=== PATIENT | male | born 1955 | race Caucasian/White ===

== ENCOUNTER 2016-11-18 10:06 | Inpatient (IN) | payer SELFPAY ==
[~2016-11-18] VITALS: Ht 182.9 cm; Wt 70.0 kg
[2016-11-18 10:08] VITALS: BP 198/88; PULSE 97; RESP 16; TEMP 97.7; O2SAT 100
[2016-11-18] MEDS ORDERED: DIPHTH/TETANUS/ACEL PERTUSSIS (BOOSTER) 0.5 ML VIAL/PFS IM ONE (11:00)
--- NOTE | 2016-11-18 11:00 | PD ---
HPI Chief Complaint: Skin Problem Time Seen by Provider: 10:37 Travel History International Travel<30 days: No Contact w/Intl Traveler<30days: No Traveled to known affect area: No History of Present Illness HPI This is a 61 year-old gentleman with no past medical history, who presents here with complaints of right foot infection. The patient states that he's had a lesion on the bottom of his left foot that started as a callus one year ago. He states that intermittently it's healed and then unhealed. He states that recently over the last week or 2, he's noted that there is been increased redness, pain and drainage in between his great toe and second toe. He denies any fevers, chills. He denies any history of diabetes mellitus. He denies any history of vascular disease. He states that there is been a foul smell coming from the drainage which is part of what prompted him to come to the ED. He denies knowing when his last tetanus immunization was. PFSH Past Medical History Tetanus Vaccination: Unknown Social History Alcohol Use: No Tobacco Use: Yes Substance Use: No Allergies-Medications (Allergen,Severity, Reaction): Coded Allergies: No Known Allergies (Unverified , 11/18/16) Reported Meds & Prescriptions Reported Meds & Active Scripts Active No Active Prescriptions or Reported Medications Review of Systems Except as stated in HPI: all other systems reviewed are Neg General / Constitutional: No: Fever, Chills HENT: No: Lightheadedness Cardiovascular: No: Chest Pain or Discomfort, Palpitations Respiratory: No: Cough, Shortness of Breath Gastrointestinal: No: Nausea, Vomiting Skin: Positive Lesions (bottom of left foot underneath the first metatarsal. It is also a ulcer in between his first and second toe) Physical Exam Narrative GENERAL: Well-nourished, well-developed patient. SKIN: Warm and dry. HEAD: Normocephalic/atraumatic. EYES: No injection or drainage. NECK: Supple, trachea midline. CARDIOVASCULAR: Regular rate and rhythm without murmurs, gallops, or rubs. RESPIRATORY: Breath sounds equal bilaterally. No accessory muscle use. MUSCULOSKELETAL: On examination of the patient's right foot, there is a large callus under the foot at the first metatarsal area. There is a chronic pale lesion noted on the central portion of the callus. There is redness noted around the callus. In between his first and second toe, there is a large rocio -sized ulceration with serous sanguinous foul smelling drainage. Cap refill is less than 3 seconds. NEUROLOGICAL: Awake and alert. Cranial nerves II through XII intact. Motor grossly within normal limits. Five out of 5 muscle strength in all muscle groups. Normal speech. Data Data Last Documented VS Vital Signs Date Time Temp Pulse Resp B/P Pulse Ox O2 Delivery O2 Flow Rate FiO2 11/18/16 10:57 76 18 11/18/16 10:08 97.7 198/88 100 Orders Foot, Complete ([id number]) (11/18/16 10:50) Complete Blood Count With Diff (11/18/16 10:50) Comprehensive Metabolic Panel (11/18/16 10:50) Wound Culture And Gram Stain (11/18/16 10:50) Iv Access Insert/Monitor (11/18/16 10:50) Mjrm-Myf-Zpalud (Booster) Inj (Boostrix (11/18/16 11:00) Ampicillin-Sulbactam Inj (Unasyn Inj) (11/18/16 12:45) Insulin Human Regular Inj (Novolin R Inj (11/18/16 12:45) Admit Order (Ed Use Only) (11/18/16 13:03) Labs Laboratory Tests Test 11/18/16 11:00 White Blood Count 6.2 TH/MM3 Red Blood Count 3.55 MIL/MM3 Hemoglobin 10.4 GM/DL Hematocrit 29.2 % Mean Corpuscular Volume 82.2 FL Mean Corpuscular Hemoglobin 29.4 PG Mean Corpuscular Hemoglobin 35.8 % Concent Red Cell Distribution Width 14.3 % Platelet Count 172 TH/MM3 Mean Platelet Volume 8.6 FL Neutrophils (%) (Auto) 77.8 % Lymphocytes (%) (Auto) 13.9 % Monocytes (%) (Auto) 7.6 % Eosinophils (%) (Auto) 0.5 % Basophils (%) (Auto) 0.2 % Neutrophils # (Auto) 4.8 TH/MM3 Lymphocytes # (Auto) 0.9 TH/MM3 Monocytes # (Auto) 0.5 TH/MM3 Eosinophils # (Auto) 0.0 TH/MM3 Basophils # (Auto) 0.0 TH/MM3 CBC Comment DIFF FINAL Differential Comment Sodium Level 133 MEQ/L Potassium Level 4.4 MEQ/L Chloride Level 103 MEQ/L Carbon Dioxide Level 24.1 MEQ/L Anion Gap 6 MEQ/L Blood Urea Nitrogen 21 MG/DL Creatinine 1.12 MG/DL Estimat Glomerular Filtration 66 ML/MIN Rate Random Glucose 256 MG/DL Calcium Level 8.6 MG/DL Total Bilirubin 0.5 MG/DL Aspartate Amino Transf 8 U/L (AST/SGOT) Alanine Aminotransferase 17 U/L (ALT/SGPT) Alkaline Phosphatase 72 U/L Total Protein 7.9 GM/DL Albumin 2.9 GM/DL MDM Medical Decision Making Medical Screen Exam Complete: Yes Emergency Medical Condition: Yes Interpretation(s) Last Impressions Foot X-Ray 11/18/16 1050 Signed Impressions: Service Date/Time: November 11:36 - CONCLUSION: 1. No underlying bony abnormality. 2. Mild osteoarthritic change. Spencer Arroyo MD Differential Diagnosis Cellulitis versus osteomyelitis versus gangrene Narrative Course 61-year-old gentleman who reports no past medical history, presents today with complaints of left foot redness pain and drainage. The patient's noted to have had a callus one year ago that is progressively gotten worse with intermittent infections. The patient states that is not healing well and he's noticed a ulcer in between his first and second toe. He denies any fevers, chills. He denies any significant past medical history although his blood glucose was noted to be in the 200s. X-ray of the foot shows no evidence of osteomyelitis. He has obvious cellulitis. Given the fact that it appears he has new onset diabetes mellitus and cellulitis, I will admit him to the hospital. He will be started on Ampicillin and sulbactam. He has been given 5 units of regular insulin. There is a call out to the residents for admission. Diagnosis Primary Impression: Diabetic ulcer of right foot Qualified Code: E11.621 - Diabetic ulcer of right foot associated with type 2 diabetes mellitus Additional Impression: New onset type 2 diabetes mellitus Scripts No Active Prescriptions or Reported Meds Jaswinder Cabezas MD Nov 18, 2016 11:00
[2016-11-18 11:22] LABS: AUTOMATED NEUTROPHIL # 4.8 TH/MM3 (1.8-7.7); BASOPHIL % 0.2 % (0.0-2.0); EOSINOPHIL % 0.5 % (0.0-4.0); HEMATOCRIT 29.2 % (39.0-51.0); HEMO FLAGS DIFF FINAL; LYMPH % 13.9 % (9.0-44.0); LYMPHOCYTE # 0.9 TH/MM3 (1.0-4.8); MEAN CELL VOLUME 82.2 FL (80.0-100.0); MEAN CORPUSCULAR HEMOGLOBIN 29.4 PG (27.0-34.0); MEAN CORPUSCULAR HGB CONC 35.8 % (32.0-36.0); MONO % 7.6 % (0.0-8.0); NEUT % 77.8 % (16.0-70.0); PLATELET COUNT 172 TH/MM3 (150-450); RED BLOOD COUNT 3.55 MIL/MM3 (4.50-5.90); RED CELL DISTRIBUTION WIDTH 14.3 % (11.6-17.2); WHITE BLOOD COUNT 6.2 TH/MM3 (4.0-11.0)
[2016-11-18 11:48] LABS: ALT (GPT) 17 U/L (12-78); ANION GAP 6 MEQ/L (5-15); BICARBONATE 24.1 MEQ/L (21.0-32.0); BLOOD UREA NITROGEN 21 MG/DL (7-18); CHLORIDE 103 MEQ/L (98-107); GLOMERULAR FILTRATION RATE 66 ML/MIN (>89); POTASSIUM 4.4 MEQ/L (3.5-5.1); SODIUM (NA) 133 MEQ/L (136-145)
--- NOTE | 2016-11-18 11:48 | RADRPT ---
EXAM DATE/TIME: 11/18/2016 11:36 This report includes an Addendum and supersedes previous reports for this exam. [facility] COMPARISON: No previous studies available for comparison. INDICATIONS : Left foot pain and redness. MEDICAL HISTORY : None. SURGICAL HISTORY : None. ENCOUNTER: Initial ACUITY: 2 weeks PAIN SCORE: 7/10 LOCATION: Left foot, medial side of great toe FINDINGS: Three view examination of the left foot demonstrates no soft tissue swelling, dislocation, or fractur e. The tarsal bones appear intact. There is no destructive change or periosteal new bone formation . The interphalangeal and metatarsophalangeal joints are intact. The calcaneus is intact. There is m ild osteopenia. There are mild degenerative changes involving the metatarsal tarsal joints and intert arsal joints with sclerosis and mild spurring. CONCLUSION: 1. No underlying bony abnormality. 2. Mild osteoarthritic change. Spencer Arroyo MD on November 18, 2016 at 11:45 Board Certified Radiologist. This report was verified electronically. ADDENDUM: This study is labeled left but all the images are of the right foot. Spencer Arroyo MD on November 19, 2016 at 8:55 Board Certified Radiologist. This report was verified electronically.
[2016-11-18 11:51] LABS: ALKALINE PHOSPHATASE 72 U/L (45-117); AST (GOT) 8 U/L (15-37); TOTAL BILIRUBIN ADULT 0.5 MG/DL (0.2-1.0)
[2016-11-18] MEDS ORDERED: INSULIN HUMAN REGULAR 1,000 UNITS/10 ML VIAL IV PUSH ONE (12:45)
[2016-11-18] MEDS ORDERED: AMPICILLIN-SULBACTAM INJ 3 GM in SODIUM CHLORIDE 0.9% INJ 100 ML IV ONE (12:45)
[2016-11-18 13:00] VITALS: BP 152/77; PULSE 76; RESP 17; O2SAT 99
[2016-11-18 15:01] VITALS: BP 150/71; PULSE 76; RESP 17; O2SAT 99
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
[2016-11-18] MEDS ORDERED: SODIUM CHLORIDE 0.9% FLUSH 5 ML FLUSH FLUSH PRN (15:45)
[2016-11-18] MEDS ORDERED: NALOXONE HCL 0.4 MG/ML AMP IV PRN (15:45)
[2016-11-18] MEDS ORDERED: Vancomycin Consult Pharmacy 1 EA OTHER SCH (16:30)
[2016-11-18] MEDS ORDERED: GLUCAGON 1 MG/ML VIAL OTHER PRN (16:30)
[2016-11-18] MEDS ORDERED: PIPERACIL-TAZO 4.5 GM PREMIX 100 ML IV SCH (16:30)
[2016-11-18] MEDS ORDERED: DEXTROSE 50% IN WATER 50 ML VIAL(D50) IV PUSH PRN (16:30)
[2016-11-18 17:33] LABS: BLOOD, URINE NEG (NEG); COMMENT (UR) CULT NOT INDICATED; CULTURE IF INDICATED CULT NOT INDICATED; GLUCOSE,URINE 150 mg/dL (NEG); KETONE, URINE NEG (NEG); MUCUS URINE FEW /lpf (OCC); NITRITE,URINE NEG (NEG); URINE COLOR YELLOW (YELLW/STRAW)
[2016-11-18 17:37] LABS: AMPHETAMINE, URINE NEG (NEG); BARBITURATES, URINE NEG (NEG); COCAINE, URINE NEG (NEG)
[2016-11-18 18:00] VITALS: BP 154/66; PULSE 87; RESP 18; TEMP 97.8; O2SAT 98
[2016-11-18] MEDS ORDERED: LISINOPRIL 10 MG TAB PO SCH (18:00)
[2016-11-18] MEDS ORDERED: PIPERACIL-TAZO 3.375 GM PREMIX 50 ML IV SCH (18:00)
[2016-11-18 18:17] LABS: HEMOGLOBIN A1a 1.1 %; HEMOGLOBIN A1b 0.7 %; HEMOGLOBIN Ao 82.5 %; HEMOGLOBIN F 1.3 %; HEMOGLOBIN LA1C 2.9 %; HEMOGLOBIN P3 4.1 %
[2016-11-18 18:18] LABS: MICRO ALBUMIN RANDOM URINE RAW 89.4 MG/L (0.0-30.0)
[2016-11-18 19:35] VITALS: BP 131/60; PULSE 78; RESP 18; O2SAT 100
[2016-11-18] MEDS ORDERED: VANCOMYCIN INJ 1,400 MG in SODIUM CHLORID 0.9% 500 ML INJ 500 ML IV ONE ×2 (20:00→21:00)
[2016-11-18] MEDS ORDERED: VANCOMYCIN INJ 1,400 MG in SODIUM CHLORID 0.9% 500 ML INJ 500 ML IV SCH (20:15)
--- NOTE | 2016-11-18 20:58 | HHI.HP ---
[facility] Service Family Medicine Primary Care Physician No Primary Care Physician Admission Diagnosis left diabetic foot ulcer with cellulitis, new onset diabetes mellitu Diagnoses: (1) Diabetic ulcer of right foot (2) New onset type 2 diabetes mellitus (3) HTN (hypertension) (4) Nutrition, metabolism, and development symptoms (5) No contraindication to deep vein thrombosis (DVT) prophylaxis International Travel<30 Days: No Contact w/Intl Traveler<30days: No Known Affected Area: No History of Present Illness 61 yo M presenting to the ED with a right foot ulceration and found to have diabetes. He has no known past medical history, however has not seen a doctor in >20 years. He first noticed a callous on the bottom of his right foot 1 year ago that has been breaking open and healing over the past several months. He then noticed a blister in between his 1st/2nd toe one week ago that eventually opened and began draining serous fluid. He has had continued pain in the foot with swelling and erythema around the open wound - he now is having pain with walking and keeping the area clean/dry. He denies fevers/chills, denies nausea/vomiting, denies polyuria, denies polydipsia, denies tremulousness, denies paresthesias. During workup in the ED, he was found to have a blood glucose of 256. Review of Systems Constitutional: DENIES: Fever, Chills Endocrine: DENIES: Heat/cold intolerance, Polydipsia, Polyuria Cardiovascular: DENIES: Chest pain, Palpitations Gastrointestinal: DENIES: Abdominal pain Musculoskeletal: DENIES: Joint pain, Muscle aches, Joint Swelling Past Family Social History Past Medical History Patient has not seen a primary care doctor in 20-30 years. Past Surgical History Bone graft for shoulder cyst at 5 years old. I&D of boil on butt about 15-20 years ago.. Allergies: Coded Allergies: No Known Allergies (Unverified , 11/18/16) Family History Dad has DM. Denies any other family history of medical problems. Social History Patient lives alone. Works odd jobs, maintenance. His father left him enough of an inheritance to live on without any additional expenses. Patient reports smoking 1/2 ppd max. Patient denies any alcohol use. Patient denies any drug use. Physical Exam Vital Signs Vital Signs Date Time Temp Pulse Resp B/P Pulse Ox O2 Delivery O2 Flow Rate FiO2 11/18/16 19:35 78 18 131/60 100 Room Air 11/18/16 18:00 97.8 87 18 154/66 98 Room Air 11/18/16 15:01 76 17 150/71 99 Room Air 11/18/16 13:00 76 17 152/77 99 11/18/16 10:57 76 18 11/18/16 10:08 97.7 97 16 198/88 100 Physical Exam GENERAL: This is a thin man, in no apparent distress. SKIN: Patient has hypopigmented confluent macules throughout his chest, forearms bilaterally, back. ENT: Nose without bleeding, purulent drainage. Poor dentition with multiple dying teeth. CARDIOVASCULAR: Regular rate and rhythm without murmurs, gallops, or rubs. RESPIRATORY: Clear to auscultation. Breath sounds equal bilaterally. No wheezes , rales, or rhonchi. GASTROINTESTINAL: Abdomen soft, non-tender, nondistended. No guarding. MUSCULOSKELETAL: Patient has a stage III ulcer measures 1 cm x 2 cm on the lateral aspect of his right great toe. Unable to probe under the exposed muscle surface. He also has a half centimeter by half centimeter ulcer at the center of the callus on the sole of his right foot that is draining serosanguineous liquid. Adjacent to this is a blood blister measuring 1 cm x 2 cm. Extremities without clubbing, cyanosis, or edema. No joint tenderness, effusion, or edema noted. No calf tenderness. NEUROLOGICAL: Awake and alert. Cranial nerves II through XII grossly intact. Motor and sensory grossly within normal limits. Normal speech. Laboratory Laboratory Tests Test 11/18/16 11/18/16 11/18/16 11:00 16:00 17:00 White Blood Count 6.2 Red Blood Count 3.55 Hemoglobin 10.4 Hematocrit 29.2 Mean Corpuscular Volume 82.2 Mean Corpuscular Hemoglobin 29.4 Mean Corpuscular Hemoglobin 35.8 Concent Red Cell Distribution Width 14.3 Platelet Count 172 Mean Platelet Volume 8.6 Neutrophils (%) (Auto) 77.8 Lymphocytes (%) (Auto) 13.9 Monocytes (%) (Auto) 7.6 Eosinophils (%) (Auto) 0.5 Basophils (%) (Auto) 0.2 Neutrophils # (Auto) 4.8 Lymphocytes # (Auto) 0.9 Monocytes # (Auto) 0.5 Eosinophils # (Auto) 0.0 Basophils # (Auto) 0.0 CBC Comment DIFF FINAL Differential Comment Erythrocyte Sedimentation Rate 70 Sodium Level 133 Potassium Level 4.4 Chloride Level 103 Carbon Dioxide Level 24.1 Anion Gap 6 Blood Urea Nitrogen 21 Creatinine 1.12 Estimat Glomerular Filtration 66 Rate Random Glucose 256 Hemoglobin A1c 7.1 Calcium Level 8.6 Total Bilirubin 0.5 Aspartate Amino Transf 8 (AST/SGOT) Alanine Aminotransferase 17 (ALT/SGPT) Alkaline Phosphatase 72 Total Protein 7.9 Albumin 2.9 Ethyl Alcohol Level LESS THAN 3 Urine Color YELLOW Urine Turbidity CLEAR Urine pH 6.0 Urine Specific Sesser 1.022 Urine Protein TRACE Urine Glucose (UA) 150 Urine Ketones NEG Urine Occult Blood NEG Urine Nitrite NEG Urine Bilirubin NEG Urine Urobilinogen LESS THAN 2.0 Urine Leukocyte Esterase NEG Urine RBC 1 Urine Mucus FEW Microscopic Urinalysis Comment CULT NOT INDICATED Urine Random Creatinine 163 Urine Microalbumin/Creatinine 55 Ratio Urine Opiates Screen NEG Urine Barbiturates Screen NEG Urine Amphetamines Screen NEG Urine Benzodiazepines Screen NEG Urine Cocaine Screen NEG Urine Cannabinoids Screen POS Date/Time Procedure Status Source Growth 11/18/16 17:07 Aerobic Blood Culture Received Blood Peripheral Pending 11/18/16 17:07 Anaerobic Blood Culture Received Blood Peripheral Pending 11/18/16 15:00 Gram Stain Received Wound Foot Pending 11/18/16 15:00 Wound Culture Received Wound Foot Pending 11/18/16 11:00 Gram Stain - Final Resulted Wound Foot 11/18/16 11:00 Wound Culture Resulted Wound Foot Pending Result Diagram: 11/18/16 1100 11/18/16 1100 Imaging Last Impressions Foot X-Ray 11/18/16 1050 Signed Impressions: Service Date/Time: November 11:36 - CONCLUSION: 1. No underlying bony abnormality. 2. Mild osteoarthritic change. Spencer Arroyo MD Assessment and Plan Assessment and Plan Patient is a 61-year-old man presenting with an open foot ulcer and diabetes Problem List: (1) Diabetic ulcer of right foot Status: Acute Plan: Patient is a 61-year-old man who has not seen a doctor in 20-30 years who presents with a diabetic foot wound. Admitted for IV antibiotics, culture and susceptibilities. Zosyn 3.375 g IV every 6 hours Vancomycin at 20 mg/kg every 12 hours for dosage of vancomycin 1400 mg IV every 12 hours Blood culture - Wound management consult Follow wound culture and sensitivities ESR, if elevated, consider MRI to rule out osteomyelitis Blood glucose control as below (2) New onset type 2 diabetes mellitus Status: Chronic Plan: Patient presents new onset type 2 diabetes with random glucose of 256 and hemoglobin A1c of 7.1. Low-dose sliding scale insulin protocol UA Urine protein creatinine ratio ict support engineer consult Dietary consult (3) HTN (hypertension) Status: Chronic Plan: Patient presents with blood pressure ranging from 150s to 190s over 60s to 80s. Patient does not have primary care doctor and has not taken any medications. Lisinopril 10 mg by mouth daily (4) Nutrition, metabolism, and development symptoms Status: Acute Plan: Fluids: Patient hydrating well by mouth Electrolytes: Monitor and replete as necessary Nutrition: Diabetic diet GI prophylaxis: None currently indicated No primary care doctor: Case management consult (5) No contraindication to deep vein thrombosis (DVT) prophylaxis Status: Acute Plan: Patient ambulating, so no need for chemical anticoagulation. Bilateral SCDs Physician Certification 2 Midnight Certification Type: Admission for Inpatient Services Order for Inpatient Services The services are ordered in accordance with Medicare regulations or non- Medicare payer requirements, as applicable. In the case of services not specified as inpatient-only, they are appropriately provided as inpatient services in accordance with the 2-midnight benchmark. Estimated LOS (days): 2 2 days is the estimated time the patient will need to remain in the hospital, assuming treatment plan goals are met and no additional complications. Post-Hospital Plan: Not yet determined Problem Qualifiers (1) Diabetic ulcer of right foot: Qualified Code: E11.621 - Diabetic ulcer of right foot associated with type 2 diabetes mellitus Maximo Solitario MD Nov 18, 2016 20:58
[2016-11-18] MEDS ORDERED: INSULIN ASPART SUPPLEMENTAL SCALE SQ SCH (21:00)
[2016-11-18] MEDS ORDERED: SODIUM CHLORIDE 0.9% FLUSH 5 ML FLUSH FLUSH SCH (21:00)
--- NOTE | 2016-11-18 22:33 | PD.AMA ---
Against Medical Advice Note Discharge Disposition: Against Medical Advice Pt Condition on Discharge: Stable AMA Statement Patient Andre Cuellar has decided to leave the hospital against medical advice. This patient has the capacity to refuse care and understands the risks of leaving, including permanent disability and/or , and has had an opportunity to ask questions about his condition. The patient has been informed that he may return for care at any time, and follow up has been arranged/ advised. Patient will not be accepted to the family medicine teaching service if he returns to the hospital for treatment. Kirill Banks MD R2 Nov 18, 2016 22:33
[2016-11-19] MEDS ORDERED: VANCOMYCIN INJ 1,250 MG in SODIUM CHLOR 0.9% 250 ML INJ 250 ML IV SCH (14:00)
[2016-11-21] MEDS ORDERED: PHARMACY ORDERED LAB XX ONE (01:45)
--- NOTE | 2016-11-22 15:16 | RADRPT ---
EXAM DATE/TIME: 11/18/2016 11:36 CORRECTION Corrected on: November 22, 2016; added missing examform information. This report includes an Addendum and supersedes previous reports for this exam. [facility] COMPARISON: No previous studies available for comparison. INDICATIONS : Right foot pain and redness. MEDICAL HISTORY : None. SURGICAL HISTORY : None. ENCOUNTER: Initial ACUITY: 2 weeks PAIN SCORE: 7/10 LOCATION: Right foot, medial side of great toe FINDINGS: Three view examination of the right foot demonstrates no soft tissue swelling, dislocation, or fractu re. The tarsal bones appear intact. There is no destructive change or periosteal new bone formatio n. The interphalangeal and metatarsophalangeal joints are intact. The calcaneus is intact. There is mild osteopenia. There are mild degenerative changes involving the metatarsal tarsal joints and inter tarsal joints with sclerosis and mild spurring. CONCLUSION: 1. No underlying bony abnormality. 2. Mild osteoarthritic change. Spencer Arroyo MD on November 18, 2016 at 11:45 Board Certified Radiologist. This report was verified electronically. ADDENDUM: This study is labeled left but all the images are of the right foot. Spencer Arroyo MD on November 19, 2016 at 8:55 Board Certified Radiologist. This report was verified electronically. DR Magallanes on November 22, 2016 at 15:15 Board Certified Radiologist. This report was verified electronically.
== END 2016-11-18 22:26 | disposition left against medical advice (07) | DRG 638 ==
LOC: NEPC 10:06 → NEDA 13:05 → NEDH 19:22
PROVIDERS: ADMIT Family Medicine; ATTEND Family Medicine
DX: E11.621 Type 2 diabetes mellitus with foot ulcer (principal); L03.116 Cellulitis of left lower limb; L97.529 Non-pressure chronic ulcer of other part of left foot with unspecified severity; L97.519 Non-pressure chronic ulcer of other part of right foot with unspecified severity; I10 Essential (primary) hypertension; M19.90 Unspecified osteoarthritis, unspecified site; F17.210 Nicotine dependence, cigarettes, uncomplicated
CPT/HCPCS: 73630; 80053; 80307; 80320; 81001; 82043; 83036; 85025; 85652; 87040; 87070; 87205; 90471; 90715; 96374; 96375; J0295; J1815; J2543; J3370; J7040